=== PATIENT | male | born 1990 | race Caucasian/White ===

== ENCOUNTER 2023-03-03 17:29 | Emergency (ER) | payer SELFPAY ==
--- NOTE | ~2023-03-03 | CT_ITS ---
EXAMINATION: CT abdomen pelvis wo con DATE: 03/03/2023 19:20 INDICATION: Hematuria. TECHNIQUE: Computed tomography (CT) of the abdomen and pelvis was performed without intravenous contr ast. Automated exposure control and iterative reconstruction technique were employed. The dose-length product was 252.63 mGy-cm. COMPARISON: None. FINDINGS: The visualized portions of the lung bases are clear without pneumonia or pleural effusion. The heart size is normal. No pericardial effusion. The liver, gallbladder, spleen, pancreas, adrenal glands, and kidneys are normal. There is no urolithiasis. There is a left inguinal hernia containing fat. There are no dilated loops of bowel. The appendix is normal. There are no pathologically enlarge d lymph nodes. There is no free intraperitoneal fluid. There is mild lumbar spondylosis. IMPRESSION: 1. No urolithiasis. 2. Left inguinal hernia containing fat. Reviewed, dictated and finalized at location E. ER
[2023-03-03 17:30] VITALS: BP 127/76; PULSE 81; RESP 20; TEMP 36.8; O2SAT 100
--- NOTE | 2023-03-03 17:38 | ED.NAVMDI ---
HPI - Nausea/Vomiting/Diarrhea General Chief complaint: Nausea/Vomiting/Diarrhea Stated complaint: dehydration Time Seen by Provider: 03/03/23 17:32 Source: patient Mode of arrival: ambulatory Limitations: no limitations History of Present Illness HPI Narrative: 33-year-old male presents to the ER with -- watery diarrhea for the past 1 week which resolved yesterday. Yesterday he had bowel movements every half an hour. No vomiting. No abdominal pain. No hematemesis or melena. -- Decreased urine output since this morning. No fever or chills. No abdominal pain. No history of recent antibiotic use. MD elicited complaint: diarrhea Pertinent past history: anorexia Onset (ago): day(s) ( Started 7 days ago) Description of vomiting: watery Associated nausea: No Associated abdominal pain: No Severity: moderate Quality: aching Exacerbating factors: none Relieving factors: none Associated symptoms: denies other symptoms and decreased urine output Related Data Home Medications Medication Instructions Recorded Confirmed No Home Medications 03/03/23 03/03/23 Allergies Allergy/AdvReac Type Severity Reaction Status Date / Time No Known Allergies Allergy Verified 03/03/23 17:39 Review of Systems Review of Systems: All systems reviewed & are unremarkable except as noted in HPI and below Constitutional: Constitutional: Reports as per HPI and Reports no additional constitutional complaints Eyes: Eyes: Reports as per HPI and Reports no additional eye complaints ENT: Reports system reviewed and no additional complaints, except as documented and Reports as per HPI Cardiovascular: Cardiovascular: Reports as per HPI Respiratory: Respiratory: Reports as per HPI and Reports no additional respiratory complaints Gastrointestinal: Gastrointestinal: Reports as per HPI, Reports no additional gastrointestinal complaints and Reports diarrhea Musculoskeletal: Musculoskeletal: Reports no additional musculoskeletal complaints and Reports as per HPI Integumentary/Breasts: Skin/Breast: Reports system reviewed and no additional complaints, except as docu and Reports as per HPI Neurologic: Reports system reviewed and no additional complaints, except as documented and Reports as per HPI Psychiatric: Psychiatric: Reports no additional psychiatric complaints and Reports as per HPI Endocrine: Endocrine: Reports no additional endocrine complaints and Reports as per HPI Hematologic/Lymphatic: Hematologic/Lymphatic: Reports no additional hematologic/lymphatic complaints and Reports as per HPI Allergic/Immunologic: Allergic/Immunologic: Reports no additional allergic/immunologic complaints and Reports as per HPI [facility] Surgical History Surgical History (Updated 03/03/23 @ 17:43 by Chivo Simons MD) H/O hernia repair Exam Narrative: hemodynamically stable. Afebrile. Const: General: no acute distress Orientation/consciousness: patient oriented x3 Limitations: no limitations HENMT: Head: normal to inspection Ears: external ears normal Face/Nose/Sinus: Normal external nose present Face and sinus: normal facial exam Mouth: Yes Normal oral and palatal mucosa present Throat: posterior oropharynx normal Eyes: Conjunctivae: conjunctivae normal Cornea: corneas normal Pupils: Equal, round and reactive pupils present EOM: EOMs intact bilaterally Direct Ophthalmoscopy: no photophobia Neck: Neck: normal visual inspection, no lymphadenopathy and no meningeal signs Chest: Chest palpation & inspection: normal inspection of the chest Resp: Effort & Inspection: normal respiratory effort Auscultation: clear to auscultation bilaterally Cardio: Rate: regular rate Rhythm: regular rhythm GI: GI Palp: Yes Soft to palpation Auscultation: normal bowel sounds : General: Yes no CVA tenderness Back/Spine/Pelvis: Back: no CVA tenderness Skin: General skin exam: normal color Rashes: no rashes Wounds: no wounds Neuro:
[2023-03-03 17:59] LABS: Hematocrit 49.1 % (40.0-54.0); Mean Corpuscular HGB Conc 34.6 g/dL (32.0-36.0); Mean Corpuscular Hemoglobin 30.1 pg (27.0-31.0); Mean Corpuscular Volume 86.9 fL (78.0-102.0); Mean Platelet Volume 9.9 fl (8.7-11.0); Platelet Count Result 275 K/mm3 (150-420); Red Blood Count 5.65 M/mm3 (4.70-6.10); Red Cell Distribution Width 12.4 % (11.6-14.4); White Blood Count 5.7 K/mm3 (4.8-10.8)
[2023-03-03] MEDS: LACTATED RINGERS 1,000 ML 999 ML IV CONT ×2 (17:59→19:03)
[2023-03-03 18:13] LABS: Appearance Urine Slightly Cloudy (Clear); Bilirubin Urine 1+ (Negative); Blood Urine 3+ (Negative); Glucose Urine UA Negative (Negative); Ketones Urine Negative (Negative); Leukocyte Esterase Ur Negative LEU/UL (Negative); Nitrate Urine Negative (Negative); Protein Urine 3+ (Negative); Specific Grav Ur >= 1.030 (1.010-1.020); pH Urine 6.5 (5.0-8.0)
[2023-03-03 18:16] LABS: INR 1.1; Prothrombin Time 11.9 Seconds (9.50-12.10)
[2023-03-03 18:20] LABS: Add Urine Microscopic? YES; Amorphous Sediment Urine Moderate; Bacteria Urine 1+ /hpf; Color Urine Brown (Yellow); Squamous Epithelial Cell Urine Few /hpf (Few)
[2023-03-03 18:20] LABS: Alanine Aminotransferase 166 U/L (16-63); Albumin Level 3.6 g/dL (3.4-5.0); Alkaline Phosphatase 108 U/L (46-116); Anion Gap 12 mmol/L (8-16); Aspartate Amino Transferase 73 U/L (15-37); Bilirubin,Total 0.6 mg/dL (0.00-1.00); Blood Urea Nitrogen 19 mg/dL (7-18); Calcium 8.1 mg/dL (8.5-10.1); Carbon Dioxide 28 mmol/L (21-32); Chloride 99 mmol/L (98-108); Estimated CRCL calculation 67 ml/min; Estimated Glomerular Filt Rate > 60; Glucose 89 mg/dL (70-99); Osmolality Calculated 289 mOsm/kg (285-295); Potassium 3.6 mmol/L (3.5-5.1); Sodium 139 mmol/L (136-145); Total Protein 7.6 g/dL (6.4-8.2)
[2023-03-03 18:28] LABS: Band Neutrophils Percent 1 % (0-6); Basophils Percent Manual 0 % (0-1); Eosinophils Absolute Manual 0.05 K/mm3 (0.02-0.5); Eosinophils Percent Manual 1 % (1-6); Lymphocytes Absolute Manual 1.36 K/mm3 (1.1-4.5); Lymphocytes Percent Manual 24 % (18-44); Monocytes Absolute Manual 0.96 K/mm3 (0.1-0.90); Monocytes Percent Manual 17 % (3-9); Neutrophils Percent Manual 57 % (46-73); Total Cells Counted 100
[2023-03-03 18:29] LABS: Platelet Estimate Adequate (Adequate)
[2023-03-03 18:38] LABS: Lipase 45 U/L (16-77); Troponin I 6.9 ng/L (0.00-60.4)
[2023-03-03 18:44] LABS: Creatine Kinase 64 U/L (39-308)
--- NOTE | 2023-03-03 19:03 | PC.NURSE ---
DR. Simons at bedside for patient update.
--- NOTE | 2023-03-03 19:09 | PC.NURSE ---
Patient report received from MARYSOL Mariano. Patient awaiting CT scan.
--- NOTE | 2023-03-03 19:15 | PC.NURSE ---
patient in imaging.
--- NOTE | 2023-03-03 19:25 | PC.NURSE ---
patient returned from CT scan, ivf infusing and VSS. given warm blanket. visitor at bedside. call light within reach.
[2023-03-03 19:26] VITALS: BP 125/85; PULSE 66; RESP 18; TEMP 36.7; O2SAT 100
--- NOTE | 2023-03-03 20:33 | PC.NURSE ---
dr. joel at bedside for update regarding CT results.
== END 2023-03-03 20:38 | disposition home or self-care (01) ==
PROVIDERS: Emergency Provider Internal Medicine Critical Care Medicine
DX: E86.0 Dehydration (principal); R74.01 Elevation of levels of liver transaminase levels; R19.7 Diarrhea, unspecified
CPT/HCPCS: 36415; 74176; 80053; 81001; 82550; 83605; 83690; 84484; 85025; 85610; 96360; 96361; 99284; J7120

== ENCOUNTER 2023-11-24 18:44 | Emergency (ER) | payer SELFPAY ==
--- NOTE | 2023-11-24 18:47 | ED.DENTAL ---
HPI - Dental/Oral General Chief complaint: Dental/Oral Stated complaint: dental pain Time Seen by Provider: 11/24/23 18:47 Source: patient Mode of arrival: ambulatory Limitations: no limitations History of Present Illness HPI Narrative: 33-year-old male with extensive dental caries presents to the ED with a 4 day history of -- left lower toothache /jaw pain. No fever or chills. MD Complaint: tooth pain Location: Tooth # (18) Onset (ago): day(s) ( Four days) Duration: constant Severity: severe Relieving factors: nothing Exacerbating factors: cold and heat Context: history of dental caries Treatment prior to arrival: none Related Data Allergies Allergy/AdvReac Type Severity Reaction Status Date / Time No Known Allergies Allergy Verified 03/03/23 17:39 Review of Systems Review of Systems: All systems reviewed & are unremarkable except as noted in HPI and below PMFSH Past Medical History Medical History (Updated 11/24/23 @ 19:01 by Chivo Simons MD) Dental caries Surgical History Surgical History (Updated 03/03/23 @ 17:43 by Chivo Simons MD) H/O hernia repair Exam Const: General: no acute distress Nutritional Appearance: well nourished Orientation/consciousness: patient oriented x3 Limitations: no limitations HENMT: Head: normal to inspection Ears: external ears normal Face/Nose/Sinus: Normal external nose present Face and sinus: normal facial exam Mouth: Yes Normal oral and palatal mucosa present Teeth and gingiva: dentition normal ( extensive dental caries with multiple fractured tooth) and abnormal tooth and associated gingiva ( 18- Wren is missing. extensive swelling around the tooth) Throat: posterior oropharynx normal Eyes: Conjunctivae: conjunctivae normal Pupils: Equal, round and reactive pupils present EOM: EOMs intact bilaterally Direct Ophthalmoscopy: no photophobia Neck: Neck: normal visual inspection, no lymphadenopathy and no meningeal signs Chest: Chest palpation & inspection: normal inspection of the chest Resp: Effort & Inspection: normal respiratory effort Auscultation: clear to auscultation bilaterally Cardio: Rate: regular rate Rhythm: regular rhythm GI: Auscultation: normal bowel sounds Other: no tenderness/rigidity / rebound. : General: Yes no CVA tenderness Skin: General skin exam: normal color Rashes: no rashes Wounds: no wounds Neuro: General: patient oriented x3, moves all extremities, no meningeal signs, no focal motor deficits and CN's II-XI intact bilaterally Cranial nerves: Yes Nystagmus not present Speech: normal speech Gait exam (Neuro): Normal gait present Extrem: General: normal to inspection and no clubbing, cyanosis or edema Psych: Mental Status: mental status grossly normal Affect: normal affect Attitude: cooperative Course Course Emergency Course: Dental caries dental pain Vital Signs Vital signs: Vital Signs Temperature 37.0 C 11/24/23 18:48 Pulse Rate 77 11/24/23 18:48 Respiratory Rate 16 11/24/23 18:48 Blood Pressure 143/103 H 11/24/23 18:48 Pulse Oximetry 100 11/24/23 18:48 Oxygen Delivery Room Air 11/24/23 18:48 Temperature 37.0 C 11/24/23 18:48 Pulse Rate 77 11/24/23 18:48 Respiratory Rate 16 11/24/23 18:48 Blood Pressure 143/103 H 11/24/23 18:48 Pulse Oximetry 100 11/24/23 18:48 Oxygen Delivery Room Air 11/24/23 18:48 MDM - Dental/Oral MDM Narrative Medical decision making narrative: dental caries dental pain Differential Diagnosis Differential diagnosis: Likely gingival abscess and dental abscess Medical Records Attestation: I reviewed the patient's medical records. Discharge Plan Discharge Clinical Impression: Dental caries, Toothache Patient Disposition: Home, Self-Care Condition: Stable Instructions: Antibiotic Form, Dental Abscess (ED), Toothache (ED) Patient Language: Estonian Prescriptions: New clindamycin HCl 3
[2023-11-24 18:48] VITALS: BP 143/103; PULSE 77; RESP 16; TEMP 37; O2SAT 100
[2023-11-24] MEDS: HYDROcodone/acetaminophen (*CRX) 10-325 MG TABLET 1 TAB PO (18:59)
[2023-11-24] MEDS: CLINDAMYCIN HCL 150 MG CAP 300 MG PO (19:10)
== END 2023-11-24 19:12 | disposition home or self-care (01) ==
LOC: CHSED 19:07
PROVIDERS: Emergency Provider Internal Medicine Critical Care Medicine
DX: K02.9 Dental caries, unspecified (principal)
CPT/HCPCS: 99283; A9270

== ENCOUNTER 2024-02-09 20:15 | Emergency (ER) | payer BC, SELFPAY ==
--- NOTE | ~2024-02-09 | CT_ITS ---
Non-contrast CT scan of the Abdomen and Pelvis Clinical indication: Abdominal pain Technique: 2.5 mm axial scans were obtained through the abdomen and pelvis without intravenous or or al contrast. Dose reduction technique was used on this scan by utilizing automated exposure control a nd iterative reconstruction technique. The dose-length product (DLP) was 237.27 mGy-cm. COMPARISON: 03/03/2023 Findings: Images through the lung bases reveal focal areas of airspace opacity in the right middle l obe. There is no evidence of renal or ureteral calculi. The kidneys and the ureters are nondilated. The liver, spleen, pancreas, gallbladder, and adrenals appear normal. There is no aortic aneurysm. There is no evidence of bowel obstruction. Images through the pelvis were performed. There is no evidence of ascites or lymphadenopathy. Urinary bladder unremarkable. No pelvic mass seen. Impression: Possible focal right middle lobe pneumonia versus postinflammatory change. No other significant findings. Reviewed, dictated and finalized at [facility]. ASSIGNMENT EDITOR Impression: Possible focal right middle lobe pneumonia versus postinflammatory change. No other significant findings.
--- NOTE | ~2024-02-09 | CT_ITS ---
Clinical Indication: Right middle lobe airspace disease, right upper quadrant pain CT Scan of the Chest, Abdomen, and Pelvis with Contrast: Technique: Contiguous sections were acquired throughout the chest, abdomen, and pelvis after intraven ous administration of 100 cc of Omnipaque 350. Dose reduction technique was used on this scan by uti madelineing automated exposure control and iterative reconstruction technique. The dose-length product (DL P) was 380.14 mGy-cm. Comparison: 02/09/2024 Findings: There is no evidence of any significant mediastinal, hilar or axillary lymphadenopathy. The mediastin al soft tissues appear normal. No central pulmonary embolus seen. No aortic aneurysm or dissection. There is no evidence of pleural or pericardial effusion. Stable focal airspace opacity/nodularity in the inferior right middle lobe. No other pulmonary abnorm ality seen. The liver, spleen, pancreas, gallbladder, adrenals and kidneys are within normal limits. No evidence of aortic aneurysm. No lymphadenopathy. No bowel obstruction or bowel wall thickening. There is no evidence to suggest acute appendicitis. Urinary bladder is unremarkable. Urinary bladder unremarkable. No pelvic mass seen. No ascites. Impression: Stable focal right middle lobe pneumonia versus postinflammatory change. No significant abnormality in the abdomen or pelvis. Reviewed, dictated and finalized at location . 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 No significant abnormality in the abdomen or pelvis.
--- NOTE | 2024-02-09 20:34 | ED.NAVMDI ---
HPI - Nausea/Vomiting/Diarrhea General Chief complaint: Nausea/Vomiting/Diarrhea Stated complaint: vomiting Time Seen by Provider: 02/09/24 20:34 Source: patient Mode of arrival: ambulatory Limitations: no limitations History of Present Illness HPI Narrative: patient is a 34-year-old male with right upper quadrant pain this evening and this started out as diffuse lower abdominal pain. Significantly was out drinking for the holiday in more than normal amounts. He has associated nausea and vomiting. patient also fell and landed on his back any as musculoskeletal back pain since the fall. Also pain with nausea and vomiting. MD elicited complaint: nausea, vomiting and abdominal pain Pertinent past history: other ( none) Onset (ago): day(s) (1) Description of vomiting: watery Description of diarrhea: other ( none) Associated nausea: Yes Associated abdominal pain: Yes Location of pain: diffuse and RUQ Radiation: diffuse and RUQ Pain consistency: constant Severity: moderate Pain scale (0-10): 6 Quality: sharp Exacerbating factors: eating, vomiting, movement and other ( palpation) Relieving factors: medication ( pain medicine in the ER) Context: other ( patient was drinking alcohol yesterday for the holiday and started to have abdominal pain today with nausea vomiting) Associated symptoms: nausea/vomiting Treatment prior to arrival: none Related Data Allergies Allergy/AdvReac Type Severity Reaction Status Date / Time No Known Allergies Allergy Verified 03/03/23 17:39 Review of Systems Review of Systems: All systems reviewed & are unremarkable except as noted in HPI and below Constitutional: Constitutional: Reports no additional constitutional complaints Eyes: Eyes: Reports no additional eye complaints ENT: Reports system reviewed and no additional complaints, except as documented Cardiovascular: Cardiovascular: Reports no additional cardiovascular complaints Respiratory: Respiratory: Reports no additional respiratory complaints Gastrointestinal: Gastrointestinal: Reports no additional gastrointestinal complaints Genitourinary: Genitourinary: Reports no additional male genitourinary complaints Musculoskeletal: Musculoskeletal: Reports no additional musculoskeletal complaints Integumentary/Breasts: Skin/Breast: Reports system reviewed and no additional complaints, except as docu Neurologic: Reports system reviewed and no additional complaints, except as documented Psychiatric: Psychiatric: Reports no additional psychiatric complaints Endocrine: Endocrine: Reports no additional endocrine complaints Hematologic/Lymphatic: Hematologic/Lymphatic: Reports no additional hematologic/lymphatic complaints Allergic/Immunologic: Allergic/Immunologic: Reports no additional allergic/immunologic complaints [facility] Past Medical History Medical History Dental caries Surgical History Surgical History H/O hernia repair Exam Const: General: healthy appearing Nutritional Appearance: well nourished Orientation/consciousness: patient oriented x3 Limitations: no limitations HENMT: Head: normal to inspection Ears: external ears normal Face/Nose/Sinus: Normal external nose present Eyes: Conjunctivae: conjunctivae normal Cornea: corneas normal Pupils: Equal, round and reactive pupils present Neck: Neck: normal visual inspection Chest: Chest palpation & inspection: normal inspection of the chest Resp: Effort & Inspection: normal respiratory effort and not labored Auscultation: clear to auscultation bilaterally and no crackles Cardio: Rate: regular rate Rhythm: regular rhythm Heart sounds: no murmurs GI: Inspection: non-distended GI Palp: Yes Soft to palpation, Yes Tenderness to palpation present (GI) ( right upper quadrant after initial diffuse lower abdomen), Yes Guarding due to palpation present (GI), Yes Rigid due to palpation ( equivocal), No Hernia present, No Palpable mass present and No Rebound tenderness present Auscultation: normal bowel sounds : General: Yes bladder normal to palpation Back/Spine/Pelvis: Back: no CVA tenderness Skin: General skin exam: normal color Rashes: no rashes Wounds: no wounds Neuro: General: patient oriented x3 Cranial nerves: Yes Nystagmus not present Speech: normal speech Gait exam (Neuro): Normal gait present Extrem: General: normal to inspection Psych: Mental Status: mental status grossly normal Affect: normal affect Attitude: cooperative MDM - Nausea/Vomiting/Diarrhea MDM Narrative Medical decision making narrative: patient is a 34-year-old male with abdominal pain and associated nausea and vomiting. We will do a GI workup at this time. patient had variable abdominal pain throughout his stay and we did a CT plain and a CT with contrast. CT with contrast reassured that there is no acute findings except a possible right middle lobe pneumonia. He is basically asymptomatic for this pneumonia. Lab Data Attestation: I reviewed the patient's lab results. 02/09/24 22:42 02/09/24 22:42 Labs: Lab Results 02/09/24 Range/Units 22:42 WBC 9.7 (4.8-10.8) K/mm3 RBC 5.01 (4.70-6.10) M/mm3 Hgb 15.3 (14.0-18.0) g/dL Hct 44.8 (40.0-54.0) % MCV 89.4 (78.0-102.0) fL MCH 30.5 (27.0-31.0) pg MCHC 34.2 (32-36) g/dL RDW 12.1 (11.6-14.4) % Plt Count 316 (150-420) K/mm3 MPV 9.1 (8.7-11.0) fl Immature Gran % (Auto) 0.3 H (0.0-0.0) % Neut % (Auto) 73.8 H (50.0-70.0) % Lymph % (Auto) 17.5 L (18.0-42.0) % Pender % (Auto) 7.8 (2.0-11.0) % Eos % (Auto) 0.3 L (1.0-6.0) % Baso % (Auto) 0.3 (0.0-1.0) % Lymph # (Auto) 1.70 (1.10-4.50) K/mm3 Pender # (Auto) 0.76 (0.10-0.90) K/mm3 Eos # (Auto) 0.03 (0.02-0.50) K/mm3 Baso # (Auto) 0.03 (0.00-0.10) K/mm3 Abs Immat Gran (auto) 0.03 H (0.00-0.00) K/mm3 Absolute Neuts (auto) 7.17 (1.70-7.20) K/mm3 Absolute Nucleated RBC 0.00 (0.00-0.00) K/mm3 Nucleated RBC % 0.0 (0-0.0) % Sodium 141 (136-145) mmol/L Potassium 3.7 (3.5-5.1) mmol/L Chloride 102 (98-108) mmol/L Carbon Dioxide 34 H (21-32) mmol/L Anion Gap 5 (4-12) mmol/L BUN 10 (7-18) mg/dL Creatinine 1.11 (0.70-1.30) mg/dL Estim Creat Clear Calc Not Reportable Estimated GFR > 60 (59 - ) Glucose 115 H (70-99) mg/dL Calculated Osmolality 292 (285-295) mOsm/kg Lactic Acid 0.7 (0.4-2.0) mmol/L Calcium 9.2 (8.5-10.1) mg/dL Magnesium 2.1 (1.8-2.4) mg/dL Total Bilirubin 0.5 (0.00-1.00) mg/dL AST 22 (15-37) U/L ALT 39 (16-63) U/L Alkaline Phosphatase 119 H (46-116) U/L Total Protein 7.3 (6.4-8.2) g/dL Albumin 3.9 (3.4-5.0) g/dL Lipase 29 (16-77) U/L Imaging Data Attestation: I personally reviewed and interpreted this imaging study as follows: Radiologist's impression: CT scan of the abdomen and pelvis without contrast showed a questionable right middle lobe airspace disease and patient does not have any respiratory complaints and a contracted gallbladder; we will proceed with doing a CT scan of the abdomen and pelvis with contrast now to get a better picture of the gallbladder area and then ultrasound in the morning if needed CT scan of the chest abdomen and pelvis with contrast showed Impression: Stable focal right middle lobe pneumonia versus postinflammatory change. No significant abnormality in the abdomen or pelvis. Discharge Plan Discharge Clinical Impression: Musculoskeletal pain Nausea & vomiting Qualifiers: Vomiting type: unspecified Qualified Code(s): R11.2 - Nausea with vomiting, unspecified Gastritis Qualifiers: Gastritis type: unspecified gastritis Chronicity: acute Gastritis bleeding: without bleeding Qualified Code(s): K29.00 - Acute gastritis without bleeding Pneumonia Qualifiers: Pneumonia type: due to unspecified organism Laterality: right Lung location: unspecified part of lung Qualified Code(s): J18.9 - Pneumonia, unspecified organism Patient Disposition: Home, Self-Care Condition: Stable Instructions: Antibiotic Form, Acute Nausea and Vomiting (ED), Abdominal Pain (ED) Patient Language: Turkmen Prescriptions: New azithromycin 250 mg tablet See Rx Instructions .ROUTE .COMPLEX Qty: 6 0RF Rx Instructions: For 250 mg dose pack: take 500 mg today (day 1), then 250 mg for 4 days (days 2-5) orphenadrine citrate 100 mg tablet extended release 100 mg PO BID PRN (Reason: pain) Qty: 20 0RF No Action clindamycin HCl 300 mg capsule 300 mg PO Q8H Qty: 20 0RF Follow-up/Referrals: UNKNOWN,DOCTOR [Primary Care Provider] - Time of Disposition: 06:43
[2024-02-09 22:48] LABS: Basophils Absolute Auto 0.03 K/mm3 (0.00-0.10); Basophils Percent Auto 0.3 % (0.0-1.0); Eosinophils Absolute Auto 0.03 K/mm3 (0.02-0.50); Eosinophils Percent Auto 0.3 % (1.0-6.0); Hematocrit 44.8 % (40.0-54.0); Hemoglobin 15.3 g/dL (14.0-18.0); Immature Granulocyte Absolute 0.03 K/mm3 (0.00-0.00); Immature Granulocyte Percent A 0.3 % (0.0-0.0); Lymphocytes Percent Auto 17.5 % (18.0-42.0); Mean Corpuscular HGB Conc 34.2 g/dL (32-36); Mean Corpuscular Hemoglobin 30.5 pg (27.0-31.0); Mean Corpuscular Volume 89.4 fL (78.0-102.0); Mean Platelet Volume 9.1 fl (8.7-11.0); Monocytes Absolute Auto 0.76 K/mm3 (0.10-0.90); Monocytes Percent Auto 7.8 % (2.0-11.0); Neutrophils Absolute Auto 7.17 K/mm3 (1.70-7.20); Neutrophils Percent Auto 73.8 % (50.0-70.0); Platelet Count Result 316 K/mm3 (150-420); Red Blood Count 5.01 M/mm3 (4.70-6.10); Red Cell Distribution Width 12.1 % (11.6-14.4); White Blood Count 9.7 K/mm3 (4.8-10.8)
[2024-02-09 23:09] LABS: Alanine Aminotransferase 39 U/L (16-63); Albumin Level 3.9 g/dL (3.4-5.0); Alkaline Phosphatase 119 U/L (46-116); Anion Gap 5 mmol/L (4-12); Aspartate Amino Transferase 22 U/L (15-37); Bilirubin,Total 0.5 mg/dL (0.00-1.00); Blood Urea Nitrogen 10 mg/dL (7-18); Calcium 9.2 mg/dL (8.5-10.1); Carbon Dioxide 34 mmol/L (21-32); Chloride 102 mmol/L (98-108); Estimated Glomerular Filt Rate > 60; Glucose 115 mg/dL (70-99); Osmolality Calculated 292 mOsm/kg (285-295); Potassium 3.7 mmol/L (3.5-5.1); Sodium 141 mmol/L (136-145); Total Protein 7.3 g/dL (6.4-8.2)
[2024-02-09 23:14] LABS: Lipase 29 U/L (16-77); Magnesium 2.1 mg/dL (1.8-2.4)
[2024-02-09 23:15] LABS: Lactic Acid Reflex 0.7 mmol/L (0.4-2.0)
[2024-02-09] MEDS: SODIUM CHLORIDE 0.9% IV 1,000 ML 999 ML IV CONT (23:20)
[2024-02-10] MEDS: KETOROLAC 30 MG/ML VIAL (*BKC) IV PUSH (01:10)
[2024-02-10] MEDS: MORPHINE SULFATE (*CRX) 2 MG/ML INJ IV PUSH (02:11)
[2024-02-10] MEDS: HYDROmorphone HCL INJ (*CRX) 2 MG/ML VIAL 0.5 MG IV PUSH (04:15)
[2024-02-10 07:11] VITALS: BP 104/77; PULSE 67; RESP 18; TEMP 36.7; O2SAT 98
== END 2024-02-10 07:11 | disposition home or self-care (01) ==
PROVIDERS: Emergency Provider Emergency Medicine
DX: K29.00 Acute gastritis without bleeding (principal); J18.9 Pneumonia, unspecified organism; R11.2 Nausea with vomiting, unspecified
CPT/HCPCS: 36415; 71260; 74176; 74177; 80053; 83605; 83690; 83735; 85025; 96361; 96374; 96375; 99284; J1171; J1885; J2270; J7030; Q9967

== ENCOUNTER 2024-08-14 13:12 | Emergency (ER) | payer OTHER, SELFPAY ==
[2024-08-14 13:19] VITALS: BP 120/80; PULSE 63; RESP 16; TEMP 36.5; O2SAT 100
--- NOTE | 2024-08-14 13:52 | ED_ITS ---
HPI - General Adult General Chief complaint: Headache Stated complaint: Headache/Nausea/Low Blood Pressure Time Seen by Provider: 08/14/24 13:30 Source: patient and RN notes reviewed Mode of arrival: ambulatory Limitations: no limitations History of Present Illness HPI narrative: Patient presents today complaining of frontal headache that was present upon waking this morning, significant fatigue, nausea, photophobia, bilateral lower leg tingling(right greater than left), and low blood pressure. checked his blood pressure at home this morning and it was 95 systolic, then 101/60. His blood sugar at that time was 100. He took Tylenol around 11 without improvement in headache symptoms. States headache waxes and wanes and currently rates his pain 2/10. He denies dizziness or lightheadedness, vision changes, numbness or tingling in the genitalia, loss of bowel or bladder control, chest pain, shortness of breath, abdominal pain. 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 Related Data Home Medications ?Medication ?Instructions ?Recorded ?Confirmed ?Last Taken ?Type No Home Medications 08/14/24 08/14/24 Unknown History Allergies Allergy/AdvReac Type Severity Reaction Status Date / Time No Known Allergies Allergy Verified 08/14/24 13:42 [facility] Past Medical History Medical History Dental caries Surgical History Surgical History H/O hernia repair Comments At time of signature, I have reviewed and agree with nursing past medical, surgical, social and family history unless otherwise noted. Please see nursing chart for further information. There is no relevant family history pertinent to the presenting complaint Exam Narrative: GENERAL: Well-appearing, well-nourished, and in no acute distress. HEAD: Normocephalic, atraumatic. EYES: EOMI. PERRL. No redness or drainage. Conjunctivae normal. ENT: Mucous membranes pink and moist. Nares clear. No rhinorrhea. TMs normal bilaterally. Throat normal. Uvula midline. NECK: Normal AROM. Supple. No lymphadenopathy. CHEST: No respiratory distress. Clear to auscultation. HEART: Regular rate and rhythm. No murmur appreciated. Normal peripheral pulses. ABDOMEN: Soft, nontender, nondistended, normal active bowel sounds. MUSCULOSKELETAL: No bony tenderness. EXTREMITIES: Normal range of motion. No edema. Hand dispatcher electric power equal and strong. Dorsiflexion and plantarflexion equal and strong against resistance. SKIN: Warm, dry, no rash. Capillary refill normal. Normal skin turgor. NEURO: No focal deficits. Alert and oriented x3. Gait steady. PSYCH: Normal affect. No signs of depression or anxiety. Course Course Level of Care: Express Care Visit Vital Signs Vital signs: Vital Signs Temperature 97.7 F 08/14/24 13:19 Pulse Rate 63 08/14/24 13:19 Respiratory Rate 16 08/14/24 13:19 Blood Pressure 120/80 08/14/24 13:19 Pulse Oximetry 100 08/14/24 13:19 Oxygen Delivery Room Air 08/14/24 13:19 Temperature 97.7 F 08/14/24 13:19 Pulse Rate 63 08/14/24 13:19 Respiratory Rate 16 08/14/24 13:19 Blood Pressure 120/80 08/14/24 13:19 Pulse Oximetry 100 08/14/24 13:19 Oxygen Delivery Room Air 08/14/24 13:19 Reviewed Transfer Transfered to: [facility] Transportation: Other (Private vehicle) Transfer rationale: Headache, fatigue, nausea Accepting physician: Sandra Medical Decision Making [facility] Narrative Medical decision making narrative: Patient is 34-year-old male primarily complaining of extreme fatigue, frontal headache, nausea, bilateral lower leg tingling that was not improved with Tylenol this morning. Patient works out in the heat and did go to work this morning. He had some low blood pressure readings at home this morning but blood pressure upon arrival was 120/80. Blood sugar at home was 100. Bedside glucose at [facility] is 112. Due to patient's symptoms and [facility] limitations regarding diagnostics, recommend ER transfer for further evaluation of his symptoms today. Patient agrees with plan. Vital signs stable. Report given to emergency room provider at [facility]. Report provided to ED physician. VSS. Differential Diagnosis Differential Diagnosis: Dehydration, hypoglycemia, electrolyte imbalance, migraine, cluster headache, viral syndrome Vital Signs Vital Signs: Vital Signs Temperature 97.7 F 08/14/24 13:19 Pulse Rate 63 08/14/24 13:19 Respiratory Rate 16 08/14/24 13:19 Blood Pressure 120/80 08/14/24 13:19 Pulse Oximetry 100 08/14/24 13:19 Oxygen Delivery Room Air 08/14/24 13:19 Temperature 97.7 F 08/14/24 13:19 Pulse Rate 63 08/14/24 13:19 Respiratory Rate 16 08/14/24 13:19 Blood Pressure 120/80 08/14/24 13:19 Pulse Oximetry 100 08/14/24 13:19 Oxygen Delivery Room Air 08/14/24 13:19 Critical Care Time Critical Care Time Critical Care Time: No Discharge Plan Discharge Clinical Impression: Headache, Nausea, Fatigue Patient Disposition: Acute Care Hospital Condition: Stable Patient Language: Taiwanese Prescriptions: No Action No Home Medications Follow-up/Referrals: PHYSICIAN,LABORATORY TECHNICAL SPECIALIST [Primary Care Provider] - Time of Disposition: 14:06
== END 2024-08-14 14:06 | disposition short-term general hospital (02) ==
PROVIDERS: Emergency Provider Nurse Practitioner
DX: R51.9 Headache, unspecified (principal); R11.0 Nausea; R53.83 Other fatigue
CPT/HCPCS: 82948; 99203; G0463

== ENCOUNTER 2024-08-14 14:32 | Emergency (ER) | payer OTHER, SELFPAY ==
--- NOTE | ~2024-08-14 | CT_ITS ---
EXAMINATION: CT brain wo con DATE: 08/14/2024 15:47 INDICATION: headache, nausea, weakness . TECHNIQUE: Computed tomography (CT) of the head was performed without intravenous contrast. The mA wa s adjusted according to patient size. Iterative reconstruction technique was employed. The dose-lengt h product was 529.67 mGy-cm. COMPARISON: None. FINDINGS: No acute intracranial hemorrhage or extra-axial fluid collection. No hydrocephalus, mass, or herniation. No acute ischemic infarct. Unremarkable dural venous sinus attenuation. No acute osseous abnormality. Aerated secretions in the right posterior ethmoid sinus, the remaining aerated spaces are clear. Basal ganglia calcifications. IMPRESSION: No acute intracranial process. Reviewed, dictated and finalized at location K.
[2024-08-14 15:09] VITALS: BP 122/76; PULSE 71; RESP 16; TEMP 36.4; O2SAT 100
--- NOTE | 2024-08-14 15:37 | ED_ITS ---
HPI - Weakness General Chief complaint: Weakness <Aura Arroyo PA-C - Last Filed: 08/15/24 11:08> Stated complaint: headache, nausea, fatigue <SABRINA Hernandez Last Filed: 08/15/24 11:08> Time Seen by Provider: 08/14/24 15:37 <Aura Arroyo PA-C - Last Filed: 08/15/24 11:08> Focused HPI: This is a 34 year old male that presents to the ER for a headache. Reports associated nausea. Ongoing since this morning. Reports diffuse weakness. Reports numbness in the right leg. Reports he feels really tired. GENERAL: Well-appearing, well-nourished, and in no acute distress. HEAD: Normocephalic, atraumatic. CHEST: Clear to auscultation. ?No respiratory distress. HEART: Regular rate and rhythm.? NEURO: ?Alert and oriented x3. Patient screened in triage and initial orders placed.? ?Additional care and disposition to be based upon?diagnostic testing and treatment. <Aura Arroyo PA-C - Last Filed: 08/15/24 11:08> History of Present Illness HPI Narrative: as per mse <Joel Flores III, DO - Last Filed: 08/14/24 21:49> Related Data Home medications: Home Medications ?Medication ?Instructions ?Recorded ?Confirmed ?Last Taken ?Type No Home Medications 08/14/24 08/14/24 Unknown History <Aura Arroyo PA-C - Last Filed: 08/15/24 11:08> Allergies/Adverse reactions: Allergies Allergy/AdvReac Type Severity Reaction Status Date / Time No Known Allergies Allergy Verified 08/14/24 18:23 <SABRINA Hernandez Last Filed: 08/15/24 11:08> Review of Systems 2 Review of Systems: All systems reviewed & are unremarkable except as noted in HPI and below <Joel Folres III, DO - Last Filed: 08/14/24 21:49> PMFSH Past Medical History Medical History: Medical History Dental caries <Aura Arroyo PA-C - Last Filed: 08/15/24 11:08> Surgical History Surgical History: Surgical History H/O hernia repair <Aura Arroyo PA-C - Last Filed: 08/15/24 11:08> Social History Social History: Social History (Updated 08/14/24 @ 15:38 by Aura Arroyo PA-C) Smoking status: Current every day smoker Smokeless tobacco user: chewing tobacco Alcohol intake: current Substance use: never <Aura Arroyo PA-C - Last Filed: 08/15/24 11:08> Exam 2 Const: General: healthy appearing and no acute distress <Joel Horace Flores III, DO - Last Filed: 08/14/24 21:49> Nutritional Appearance: well nourished <Joel Horace Flores III, DO - Last Filed: 08/14/24 21:49> Orientation/consciousness: patient oriented x3 <Joel Horace Flores III, DO - Last Filed: 08/14/24 21:49> Limitations: no limitations <Joel Horace Flores III, DO - Last Filed: 08/14/24 21:49> HENMT: Head: normal to inspection <Joel Horace Flores III, DO - Last Filed: 08/14/24 21:49> Mouth: Yes Normal oral and palatal mucosa present <Joel Horace Flores III, DO - Last Filed: 08/14/24 21:49> Eyes: Conjunctivae: conjunctivae normal <Joel Horace Flores III, DO - Last Filed: 08/14/24 21:49> Pupils: Equal, round and reactive pupils present <Joel Horace Flores III, DO - Last Filed: 08/14/24 21:49> EOM: EOMs intact bilaterally <Joel Horace Flores III, DO - Last Filed: 08/14/24 21:49> Neck: Neck: normal visual inspection <Joel Horace Flores III, DO - Last Filed: 08/14/24 21:49> Resp: Effort & Inspection: normal respiratory effort <Joel Horace Flores III, DO - Last Filed: 08/14/24 21:49> Auscultation: clear to auscultation bilaterally <Joel Horace Flores III, DO - Last Filed: 08/14/24 21:49> Cardio: Rate: regular rate <Joel Horace Flores III, DO - Last Filed: 08/14/24 21:49> Rhythm: regular rhythm <Joel Horace Flores III, DO - Last Filed: 08/14/24 21:49> GI: GI Palp: Yes Soft to palpation and No Tenderness to palpation present (GI) <Joel Horace Flores III, DO - Last Filed: 08/14/24 21:49> Auscultation: normal bowel sounds <Joel Horace Flores III, DO - Last Filed: 08/14/24 21:49> Back/Spine/Pelvis: Back: no CVA tenderness <Joel Horace Flores III, DO - Last Filed: 08/14/24 21:49> Skin: General skin exam: normal color <Ojel Horace Flores III, DO - Last Filed: 08/14/24 21:49> Rashes: no rashes <Joel Horace Flores III, DO - Last Filed: 08/14/24 21:49> Wounds: no wounds <Joel Horace Flores III, DO - Last Filed: 08/14/24 21:49> Neuro: General: patient oriented x3, moves all extremities, no meningeal signs, no focal motor deficits and CN's II-XI intact bilaterally <Joel Horace Flores III, DO - Last Filed: 08/14/24 21:49> Cranial nerves: Yes Nystagmus not present <Joel Horace Flores III, DO - Last Filed: 08/14/24 21:49> Speech: normal speech <Joel Horace Flores III, DO - Last Filed: 08/14/24 21:49> Extrem: General: normal to inspection and no clubbing, cyanosis or edema < Joel Horace Flores III, DO - Last Filed: 08/14/24 21:49> Psych: Mental Status: mental status grossly normal <Joel Horace Flores III, DO - Last Filed: 08/14/24 21:49> Affect: normal affect <Joel Horace Flores III, DO - Last Filed: 08/14/24 21:49> Attitude: cooperative <Joel Horace Flores III, DO - Last Filed: 08/14/24 21:49> Course Vital Signs Vital signs: Vital Signs Temperature 97.5 F L 08/14/24 15:09 Pulse Rate 71 08/14/24 15:09 Respiratory Rate 16 08/14/24 15:09 Blood Pressure 122/76 08/14/24 15:09 Pulse Oximetry 100 08/14/24 15:09 Oxygen Delivery Room Air 08/14/24 15:09 Temperature 98.4 F 08/14/24 18:22 Pulse Rate 61 08/14/24 19:38 Respiratory Rate 16 08/14/24 19:38 Blood Pressure 106/81 08/14/24 19:38 Pulse Oximetry 100 08/14/24 19:40 Oxygen Delivery Room Air 08/14/24 19:40 <Aura Arroyo PA-C - Last Filed: 08/15/24 11:08> Vital Signs Temperature 97.5 F L 08/14/24 15:09 Pulse Rate 71 08/14/24 15:09 Respiratory Rate 16 08/14/24 15:09 Blood Pressure 122/76 08/14/24 15:09 Pulse Oximetry 100 08/14/24 15:09 Oxygen Delivery Room Air 08/14/24 15:09 Temperature 98.4 F 08/14/24 18:22 Pulse Rate 61 08/14/24 19:38 Respiratory Rate 16 08/14/24 19:38 Blood Pressure 106/81 08/14/24 19:38 Pulse Oximetry 100 08/14/24 19:40 Oxygen Delivery Room Air 08/14/24 19:40 <Joel Flores III, DO - Last Filed: 08/14/24 21:49> MDM - Weakness MDM Narrative Medical decision making narrative: Pt sent from [facility] for RAMOS today which is intermittent in nature and for intermittent bilateral tingling to front of shins r more than left for days. Pt feels weak as well but generally not one sided. CT and labs ordered. CT and labs unremarkable. will give shot or toradol for RAMOS. Intermittent nature of symptoms and b/l leg numbness in a very small area of leg seem to make cxa or tia unlikely. Pt feel better after toradol, wants to go home <Joel Flores III, DO - Last Filed: 08/14/24 21:49> Lab Data Result diagrams: 08/14/24 16:17 08/14/24 16:17 <Aura Arroyo PA-C - Last Filed: 08/15/24 11:08> Labs: Lab Results 08/14/24 Range/Units 16:17 WBC 5.4 (4.5-10.0) K/mm3 RBC 5.03 (4.6-6.20) M/mm3 Hgb 15.4 (14.0-18.0) g/dL Hct 45.9 (42.0-52.0) % MCV 91.3 (80-100) fl MCH 30.6 (26-34) pg MCHC 33.6 (32-36) g/dl RDW 12.6 (11.5-14.5) % Plt Count 265 (150-375) k/mm3 MPV 10.1 (7.4-10.4) fl Immature Gran % (Auto) 0.2 (0-0.5) % Neut % (Auto) 51.7 (45.5-73.1) % Lymph % (Auto) 36.2 (18.3-44.2) % [place] % (Auto) 10.2 H (2.6-8.5) % Eos % (Auto) 1.1 (0-4.4) % Baso % (Auto) 0.6 (0.2-1.2) % Lymph # (Auto) 1.96 (0.9-3.2) K/mm3 [place] # (Auto) 0.6 (0.1-0.6) K/mm3 Eos # (Auto) 0.1 (0-0.3) K/mm3 Baso # (Auto) 0.0 (0.0-0.1) K/mm3 Abs Immat Gran (auto) 0.01 (0.00-0.031) K/mm3 Absolute Neuts (auto) 2.8 (1.3-6.7) K/mm3 Absolute Nucleated RBC 0.000 (0.0-0.012) K/mm3 Nucleated RBC % 0.0 (0.0-0.2) % Sodium 141 (137-145) mmol/L Potassium 4.7 (3.4-5.0) mmol/L Chloride 101 (98-107) mmol/L Carbon Dioxide 30 (22-30) mmol/L Anion Gap 10 (4-12) mmol/L BUN 11 (9-20) mg/dL Creatinine 1.04 (0.7-1.3) mg/dL Estim Creat Clear Calc 83 ml/min Estimated GFR > 60 (59 - ) Glucose 106 (65-110) mg/dL Calcium 9.8 (8.4-10.2) mg/dL Total Bilirubin 0.8 (0.2-1.3) mg/dL AST 33 (17-59) U/L ALT 27 (6-50) U/L Alkaline Phosphatase 74 (38-126) U/L Total Protein 8.5 H (6.3-8.2) g/dL Albumin 5.0 (3.5-5.1) g/dL Urine Color Yellow (Yellow) Urine Appearance Clear (Clear) Urine pH 6.5 (5.0-9.0) Ur Specific [place] 1.011 (1.001-1.035) Urine Protein Negative (Negative) mg/dL Urine Glucose (UA) Negative (Negative) mg/dL Urine Ketones Negative (Negative) mg/dL Ur Blood (Man) Trace (Negative) Urine Nitrate Negative (Negative) Urine Bilirubin Negative (Negative) Urine Urobilinogen 1.0 (<2.0) mg/dL Leukocyte Esterase Rfl Trace H (Negative) JORI/UL Urine RBC 3-5 H (0-2) /hpf Urine WBC 0-5 (0-3) /hpf Ur Squamous Epith Cells None seen (Few) /hpf Urine Bacteria None seen /hpf Urine Casts 0-2 Urine Opiates Screen Negative (Negative) Urine Methadone Screen Negative (Negative) Ur Barbiturates Screen Negative (Negative) Ur Phencyclidine Scrn Negative (Negative) Ur Amphetamine Screen Negative (Negative) U Benzodiazepines Scrn Negative (Negative) Urine Cocaine Screen Negative (Negative) U Cannabinoids Screen Negative (Negative) Ethyl Alcohol < 10 (<10) mg/dL <Aura Arroyo PA-C - Last Filed: 08/15/24 11:08> Lab Results 08/14/24 Range/Units 16:17 WBC 5.4 (4.5-10.0) K/mm3 RBC 5.03 (4.6-6.20) M/mm3 Hgb 15.4 (14.0-18.0) g/dL Hct 45.9 (42.0-52.0) % MCV 91.3 (80-100) fl MCH 30.6 (26-34) pg MCHC 33.6 (32-36) g/dl RDW 12.6 (11.5-14.5) % Plt Count 265 (150-375) k/mm3 MPV 10.1 (7.4-10.4) fl Immature Gran % (Auto) 0.2 (0-0.5) % Neut % (Auto) 51.7 (45.5-73.1) % Lymph % (Auto) 36.2 (18.3-44.2) % [place] % (Auto) 10.2 H (2.6-8.5) % Eos % (Auto) 1.1 (0-4.4) % Baso % (Auto) 0.6 (0.2-1.2) % Lymph # (Auto) 1.96 (0.9-3.2) K/mm3 [place] # (Auto) 0.6 (0.1-0.6) K/mm3 Eos # (Auto) 0.1 (0-0.3) K/mm3 Baso # (Auto) 0.0 (0.0-0.1) K/mm3 Abs Immat Gran (auto) 0.01 (0.00-0.031) K/mm3 Absolute Neuts (auto) 2.8 (1.3-6.7) K/mm3 Absolute Nucleated RBC 0.000 (0.0-0.012) K/mm3 Nucleated RBC % 0.0 (0.0-0.2) % Sodium 141 (137-145) mmol/L Potassium 4.7 (3.4-5.0) mmol/L Chloride 101 (98-107) mmol/L Carbon Dioxide 30 (22-30) mmol/L Anion Gap 10 (4-12) mmol/L BUN 11 (9-20) mg/dL Creatinine 1.04 (0.7-1.3) mg/dL Estim Creat Clear Calc 83 ml/min Estimated GFR > 60 (59 - ) Glucose 106 (65-110) mg/dL Calcium 9.8 (8.4-10.2) mg/dL Total Bilirubin 0.8 (0.2-1.3) mg/dL AST 33 (17-59) U/L ALT 27 (6-50) U/L Alkaline Phosphatase 74 (38-126) U/L Total Protein 8.5 H (6.3-8.2) g/dL Albumin 5.0 (3.5-5.1) g/dL Urine Color Yellow (Yellow) Urine Appearance Clear (Clear) Urine pH 6.5 (5.0-9.0) Ur Specific [place] 1.011 (1.001-1.035) Urine Protein Negative (Negative) mg/dL Urine Glucose (UA) Negative (Negative) mg/dL Urine Ketones Negative (Negative) mg/dL Ur Blood (Man) Trace (Negative) Urine Nitrate Negative (Negative) Urine Bilirubin Negative (Negative) Urine Urobilinogen 1.0 (<2.0) mg/dL Leukocyte Esterase Rfl Trace H (Negative) JORI/UL Urine RBC 3-5 H (0-2) /hpf Urine WBC 0-5 (0-3) /hpf Ur Squamous Epith Cells None seen (Few) /hpf Urine Bacteria None seen /hpf Urine Casts 0-2 Urine Opiates Screen Negative (Negative) Urine Methadone Screen Negative (Negative) Ur Barbiturates Screen Negative (Negative) Ur Phencyclidine Scrn Negative (Negative) Ur Amphetamine Screen Negative (Negative) U Benzodiazepines Scrn Negative (Negative) Urine Cocaine Screen Negative (Negative) U Cannabinoids Screen Negative (Negative) Ethyl Alcohol < 10 (<10) mg/dL <Joel Flores III, DO - Last Filed: 08/14/24 21:49> Imaging Data Radiologist's impression: ITS Impressions Head CT 08/14/24 15:51 IMPRESSION: No acute intracranial process. <Aura Arroyo PA-C - Last Filed: 08/15/24 11:08> Discharge Plan Discharge Clinical Impression: Headache Qualifiers: Headache type: unspecified Headache chronicity pattern: acute headache I ntractability: not intractable Qualified Code(s): R51.9 - Headache, unspecified <SABRINA Hernandez Last Filed: 08/15/24 11:08> Patient Disposition: Home <SABRINA Hernandez Last Filed: 08/15/24 11:08> Condition: Improved <SABRINA Hernandez Last Filed: 08/15/24 11:08> Instructions: Antibiotic Form, Acute Headache (DC) <Aura Arroyo PA-C - Last Filed: 08/15/24 11:08> Patient Language: Turkish <Aura Arroyo PA-C - Last Filed: 08/15/24 11:08> Prescriptions: No Action No Home Medications <Aura Arroyo PA-C - Last Filed: 08/15/24 11:08> Follow-up/Referrals: PHYSICIAN,LOGGING RAFTER LABORER [Primary Care Provider] - <Aura Arroyo PA-C - Last Filed: 08/15/24 11:08>
[2024-08-14 16:27] LABS: Hematocrit 45.9 % (42.0-52.0); Hemoglobin 15.4 g/dL (14.0-18.0); Immature Granulocyte Percent A 0.2 % (0-0.5); Lymphocytes Absolute Auto 1.96 K/mm3 (0.9-3.2); Mean Corpuscular HGB Conc 33.6 g/dl (32-36); Mean Corpuscular Hemoglobin 30.6 pg (26-34); Mean Corpuscular Volume 91.3 fl (80-100); Nucleated Red Blood Cells Absolute Auto 0.000 K/mm3 (0.0-0.012); Nucleated Red Blood Cells Perc 0.0 % (0.0-0.2); Platelet Count Result 265 k/mm3 (150-375); Red Blood Count 5.03 M/mm3 (4.6-6.20); White Blood Count 5.4 K/mm3 (4.5-10.0)
[2024-08-14 16:34] LABS: Add Urine Microscopic? YES; Appearance Urine Clear (Clear); Glucose Urine UA Negative (Negative); Leukocyte Esterase Ur Trace LEU/UL (Negative); Nitrate Urine Negative (Negative); Non Pathogenic Casts 0-2; Specific Grav Ur 1.011 (1.001-1.035)
[2024-08-14 16:48] LABS: Cannabinoid Screen Urine Negative (Negative)
[2024-08-14 17:06] LABS: Alanine Aminotransferase 27 U/L (6-50); Albumin Level 5.0 g/dL (3.5-5.1); Alkaline Phosphatase 74 U/L (38-126); Anion Gap 10 mmol/L (4-12); Aspartate Amino Transferase 33 U/L (17-59); Bilirubin,Total 0.8 mg/dL (0.2-1.3); Blood Urea Nitrogen 11 mg/dL (9-20); Calcium 9.8 mg/dL (8.4-10.2); Carbon Dioxide 30 mmol/L (22-30); Chloride 101 mmol/L (98-107); Estimated CRCL calculation 83 ml/min; Estimated Glomerular Filt Rate > 60; Glucose 106 mg/dL (65-110); Potassium 4.7 mmol/L (3.4-5.0); Sodium 141 mmol/L (137-145); Total Protein 8.5 g/dL (6.3-8.2)
[2024-08-14 18:15] VITALS: BP 114/86; PULSE 52; RESP 18; TEMP 36.9; O2SAT 100
[2024-08-14 18:22] VITALS: BP 177/81; PULSE 53; RESP 17; TEMP 36.9; O2SAT 100
[2024-08-14] MEDS: KETOROLAC (*BKC) 60 MG/2 ML VIAL IM (19:07)
--- NOTE | 2024-08-14 19:12 | PC.NURSE ---
Assumed care of pt from MARYSOL Schaefer at this time. Pt medicated during BSSR. Call light within reach.
[2024-08-14 19:38] VITALS: BP 106/81; PULSE 61; RESP 16; O2SAT 98
[2024-08-14 19:40] VITALS: O2SAT 100
== END 2024-08-14 19:44 | disposition home or self-care (01) ==
PROVIDERS: Physician Assistant; Emergency Provider Emergency Medicine
DX: R51.9 Headache, unspecified (principal); F17.220 Nicotine dependence, chewing tobacco, uncomplicated
CPT/HCPCS: 36415; 70450; 80053; 80307; 81001; 82077; 85025; 96372; 99284; J1885

== ENCOUNTER 2024-08-25 16:45 | Outpatient (CLI) | payer OTHER, BC, SELFPAY ==
--- NOTE | ~2024-08-25 | XR_ITS ---
EXAM: XR knee RT 3V DATE: 08/25/2024 17:07 HISTORY: Chronic Rt. knee pain x15 yrs, NKI . COMPARISON: None available. FINDINGS: Normal mineralization. No fracture or dislocation. No lytic or blastic lesion. Joint space s are maintained. No erosion or periosteal change. No large joint effusion. Thickening of the distal quadriceps tendon. IMPRESSION: No acute osseous finding in the right knee. Quadriceps tendon thickening, may reflect a c omponent of tendinopathy. Consider MRI of the knee for further evaluation. Reviewed, dictated and finalized at location K. IMPRESSION: No acute osseous finding in the right knee. Quadriceps tendon thick ening, may reflect a component of tendinopathy. Consider MRI of the knee for fu rther evaluation.
--- NOTE | ~2024-08-25 | XR_ITS ---
EXAM: XR lumbar spine 2-3V DATE: 08/25/2024 17:07 HISTORY: Chronic low back pain x15 yrs, NKI . COMPARISON: None available. FINDINGS: 5 nonrib-bearing lumbar-type vertebral bodies. Rudimentary disc at S1-S2. Pedicles intact. Normal vertebral body alignment. Mild anterior wedge deformity at L1 and L2. Mild disc space narrowi ng at L1-2 and L3-4. Small left-sided lateral marginal osteophyte at L2-3. Normal facets and posterio r elements. No fracture or dislocation. IMPRESSION: Very mild anterior wedge deformity at L1 and L2, may be physiologic or related to old tra fidencio. Mild degenerative disc disease at L2-3 and L3-4. If pain persists, consider MRI of the lumbar sp ine further evaluation. Reviewed, dictated and finalized at location K. IMPRESSION: Very mild anterior wedge deformity at L1 and L2, may be physiologic or related to old trauma. Mild degenerative disc disease at L2-3 and L3-4. If pain persists, consider MRI of the lumbar spine further evaluation.
== END 2024-08-25 16:46 | disposition home or self-care (01) ==
LOC: CHSIMG 16:47
PROVIDERS: PCP Family Medicine; Visit Provider Family Medicine
DX: M25.561 Pain in right knee (principal); M54.50 Low back pain, unspecified; M48.56XA Collapsed vertebra, not elsewhere classified, lumbar region, initial encounter for fracture; M51.369 Other intervertebral disc degeneration, lumbar region without mention of lumbar back pain or lower extremity pain
CPT/HCPCS: 72100; 73562

== ENCOUNTER 2024-09-02 07:06 | Outpatient (CLI) | payer OTHER, SELFPAY ==
--- NOTE | ~2024-09-02 | MR_ITS ---
MRI of the lumbar spine Clinical History: Back pain Technique: Axial T2-weighted images, and sagittal T1-weighted, T2-weighted, and T2 fat-sat images wer e acquired. Findings: There is no fracture or subluxation of the lumbar spine. Vertebral bodies maintain normal h eight and alignment. No bone marrow signal reality seen. No significant disc bulge or herniation seen at any lumbar level. There are mild facet joint degenera tive changes. No spinal canal stenosis seen in the lumbar spine. There is probable mild neural forami nal narrowing throughout the lumbar spine. Paravertebral soft tissues are unremarkable. Impression: Probable multilevel mild neural foraminal narrowing throughout the lumbar spine with mild facet arthr opathy. Reviewed, dictated and finalized at location . Impression: Probable multilevel mild neural foraminal narrowing throughout the lumbar spine with mild facet arthropathy.
== END 2024-09-02 07:07 | disposition home or self-care (01) ==
LOC: CHSIMG 07:09
PROVIDERS: PCP Family Medicine; Visit Provider Family Medicine
DX: M54.50 Low back pain, unspecified (principal); M47.816 Spondylosis without myelopathy or radiculopathy, lumbar region
CPT/HCPCS: 72148

== ENCOUNTER 2024-09-18 16:11 | Outpatient (RCR) | payer OTHER, MEDICAID, SELFPAY ==
--- NOTE | 2024-10-16 16:47 | OPREHPOC ---
Outpatient Therapy Plan of Care This is a Multidisciplinary Plan of Care that may contain components documented by all disciplines (PT, OT, and ST.) PT Problem 1 PT Problem #1 Knowledge Deficit PT Goal 1 Goal / Goal Update independent and compliant with HEP Target Visit 6 PT Problem 2 PT Problem #2 Pain PT Goal 1 Goal / Goal Update decrease pain at worst to 1/10 or less in the lower back Target Visit 12 PT Problem 3 PT Problem #3 Impaired Range of Motion PT Goal 1 Goal / Goal Update 100% lumbar active rom without pain Target Visit 12 PT Problem 4 PT Problem #4 Impaired Strength PT Goal 1 Goal / Goal Update 4+/5 or better bilateral hip strength overall 4/5 or better core strength Target Visit 12 PT Problem 5 PT Problem #5 Impaired Functional Mobility PT Goal 1 Goal / Goal Update oswestry to display 10% or less functional deficits patient to perform safe squat and lift of 50lbs without pain patient to carry 50lbs for 400ft or more without pain Target Visit 12
--- NOTE | 2024-10-16 16:47 | PTOPEVAL1 ---
Assessment and note entered by JT File, PT Evaluation Information Assessment Status Evaluation ICD-10 Condition Codes (PT) Pain in low back M54.50 Onset 09/13/24 Subjective Information patient reports he has pain in the lower back every day. he reports the pain neve goes away. he reports he had an xray and an MRI of the lower back and reports he was told it is compressed. 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 he reports nothing changes his pain, but some days are worse than others. Assessment PT Clinical Summary mr. lubin is a 34 yo man who presents to skilled PT services for evaluation and treatment of lower back pain. he reports pain all the time in the lower back, and reports he had an MRI that shows lumbar disc compression. he display limited lumbar rom, weak hips, and deficits in functional movement/activity performance. continued skilled PT is indicated to achieve his objective/ functional deficits and progress towards a return to his prior level functional activity performance /quality of life. Plan of Care Interventions Electrical Stimulation,Gait Training,Hot Pack/Cold Pack,Manual Therapy,Mechanical Traction,Neuro Re- education,Patient/Caregiver Education,Therapeutic Activities,Therapeutic Exercise PT Services Indicated Yes Treatment Frequency and 3x weekly for 12 visits Duration These treatments will address the objective and functional deficits as defined above. The patient will be advanced safely and appropriately in order for the patient to progress towards his/her prior level of function. Additional exercises will be introduced and as well as a comprehensive home exercise program upon discharge, if needed, ?to ensure carryover of functional gains achieved in the clinic. This treatment plan has been reviewed and agreement upon by the patient.
--- NOTE | 2024-10-16 17:44 | OPREHPOC ---
Outpatient Therapy Plan of Care This is a Multidisciplinary Plan of Care that may contain components documented by all disciplines (PT, OT, and ST.) PT Problem 1 PT Problem #1 Knowledge Deficit PT Goal 1 Goal / Goal Update independent and compliant with HEP Target Visit 6 Progress Met PT Problem 2 PT Problem #2 Pain PT Goal 1 Goal / Goal Update decrease pain at worst to 1/10 or less in the lower back Target Visit 12 Progress Not Met PT Problem 3 PT Problem #3 Impaired Range of Motion PT Goal 1 Goal / Goal Update 100% lumbar active rom without pain Target Visit 12 Progress Partially Met PT Problem 4 PT Problem #4 Impaired Strength PT Goal 1 Goal / Goal Update 4+/5 or better bilateral hip strength overall. met 4/5 or better core strength Target Visit 12 Progress Partially Met PT Problem 5 PT Problem #5 Impaired Functional Mobility PT Goal 1 Goal / Goal Update oswestry to display 10% or less functional deficits patient to perform safe squat and lift of 50lbs without pain patient to carry 50lbs for 400ft or more without pain Target Visit 12 Progress Not Met
--- NOTE | 2024-10-16 17:45 | PTOPPROGNS ---
Assessment and note entered by JT File, PT Evaluation Information Assessment Status Progress ICD-10 Condition Codes (PT) Pain in low back M54.50 Onset 09/13/24 Subjective Information patient reports he continues to have pain all the time in the lower back. he reports he will feel a little better after therapy, but wake up the next day with pain again in the lower back. he reports nothing makes it worse, it is just sore and painful all the time. Assessment PT Clinical Summary mr. lubin presents to skilled PT services for his 10th skilled PT visit. despite reporting no subjective changes, patient displays slightly better score on the oswestry, and improved hip strength bilat. continued therapy will focus on improving his lumbar rom, core strength, and functional lifting performance to achieve goals and reduce pain. Plan of Care Interventions Electrical Stimulation,Gait Training,Hot Pack/Cold Pack,Manual Therapy,Mechanical Traction,Neuro Re- education,Patient/Caregiver Education,Therapeutic Activities,Therapeutic Exercise PT Services Indicated Yes Treatment Frequency and continue per initial POC Duration These treatments will address the objective and functional deficits as defined above. The patient will be advanced safely and appropriately in order for the patient to progress towards his/her prior level of function. Additional exercises will be introduced and as well as a comprehensive home exercise program upon discharge, if needed, ?to ensure carryover of functional gains achieved in the clinic. This treatment plan has been reviewed and agreement upon by the patient.
--- NOTE | 2024-10-25 17:47 | PTOPDC ---
Assessment and note entered by Yolanda Paulson, PT Evaluation Information Assessment Status Discharge ICD-10 Condition Codes (PT) Pain in low back M54.50 Onset 09/13/24 Subjective Information presents for his 12th skilled PT visit today addressing chronic low back pain. He reports feeling like his pain is unchanged since starting therapy. He states that there are some days when he leaves therapy feeling fine and his back doesn' t hurt, but that the pain always comes back eventually. He recent changed jobs to one that requires less lifting and physical labor and he's hoping it helps to ease his back pain a little. He feels like his strength has improved a little bit since starting but overall feels like PT hasn't helped his back very much. He has recently been experiencing his R knee giving out and has a new PT order for this, so he would like to stop therapy for his back so he can begin to focus on getting his knee to feel better. Reported Pain Level Pain Score 3: Self Report Assessment PT Clinical Summary Mr. Dunn has attended 12 skilled PT visits addressing chronic low back pain. Despite consistent attendance to therapy visits and adherence to home exercise program, his pain is relatively unchanged and he demonstrates minimal improvement toward therapeutic goals. He does demonstrate improved core and hip mm strength but still experiences pain with active lumbar movements and functional activities such as lifting. Since starting PT his R knee has started to give out on him, and he has a new PT order for his knee and would like to focus on the knee at this time, therefore he will be discharging from skilled PT for the lower back this date. Plan of Care PT Services Indicated No
== END 2024-10-25 20:00 | disposition home or self-care (01) ==
LOC: CHSPT 16:11
PROVIDERS: PCP Family Medicine; Visit Provider Family Medicine
DX: M54.50 Low back pain, unspecified (principal)
CPT/HCPCS: 97014; 97110; 97112; 97140; 97150; 97161; G0283

== ENCOUNTER 2024-11-01 16:28 | Outpatient (RCR) | payer BC, OTHER, MEDICAID, SELFPAY ==
--- NOTE | 2024-11-01 17:25 | OPREHPOC ---
Outpatient Therapy Plan of Care This is a Multidisciplinary Plan of Care that may contain components documented by all disciplines (PT, OT, and ST.) PT Problem 1 PT Problem #1 Knowledge Deficit PT Goal 1 Goal / Goal Update independent and compliant with HEP Target Visit 6 PT Problem 2 PT Problem #2 Impaired Strength PT Goal 1 Goal / Goal Update 5/5 bilateral hip strength 5/5 bilateral knee flex Target Visit 12 PT Problem 3 PT Problem #3 Impaired Functional Mobility PT Goal 1 Goal / Goal Update LEFS to display 50% or less functional deficits patient to report no instability incidents of the R knee in the past 2 weeks or longer Target Visit 12
--- NOTE | 2024-11-01 17:25 | PTOPEVAL1 ---
Assessment and note entered by JT File, PT Evaluation Information Assessment Status Evaluation ICD-10 Condition Codes (PT) Pain in right knee M25.561 Onset 10/11/24 Subjective Information patient reports he has been having issues with the R knee for about 2-3 years. he reports the knee was not too bad initially when, but it has steadily gotten worse. he reports he does not get a lot of pain, but the knee will give out on him. he reports he has never injured the R knee. he reports he did have and xray and mri of the R knee last month. he was told there was nothing significantly wrong with the knee. Reported Pain Level Pain Score 0: Self Report Assessment PT Clinical Summary mr. lubin presents to skilled PT for evaluation of chronic R knee instability. he has had MRI evaluation of the R knee with results that are inconclusive for a reason of his level of instability. he also displays adequate strength and rom of the R knee upon examination today. he is negative for all special testing of the R knee today. at this time, we are unable to assess a direct root cause of his symptoms, but he would likely benefit from continued skilled PT to work on proprioception/stability of the R knee with walking and activities. Plan of Care Interventions Gait Training,Manual Therapy,Neuro Re-education, Patient/Caregiver Education,Therapeutic Activities ,Therapeutic Exercise PT Services Indicated Yes Treatment Frequency and 3x weekly for 12 visits Duration These treatments will address the objective and functional deficits as defined above. The patient will be advanced safely and appropriately in order for the patient to progress towards his/her prior level of function. Additional exercises will be introduced and as well as a comprehensive home exercise program upon discharge, if needed, ?to ensure carryover of functional gains achieved in the clinic. This treatment plan has been reviewed and agreement upon by the patient.
--- NOTE | 2024-11-08 08:24 | PCPTNOTE ---
Cancelled session due to insurance issues.
== END 2025-01-30 23:59 | disposition home or self-care (01) ==
LOC: CHSPT 16:28
PROVIDERS: Visit Provider Orthopaedic Surgery
DX: M25.561 Pain in right knee (principal); M23.51 Chronic instability of knee, right knee
CPT/HCPCS: 97110; 97112; 97161

== ENCOUNTER 2024-11-07 11:06 | Outpatient (CLI) | payer OTHER, MEDICAID, SELFPAY ==
--- NOTE | ~2024-11-07 | XR_ITS ---
EXAMINATION: XR knee LT 3V, 11/07/2024 11:30 CDT HISTORY: L KNEE PAIN COMPARISON: No comparisons available. Findings: No acute fracture or malalignment. No significant degenerative changes. Soft tissues unremarkable. Impression: No acute fracture or malalignment. Reviewed, dictated and finalized at location P. Impression: No acute fracture or malalignment.
--- NOTE | ~2024-11-07 | XR_ITS ---
EXAMINATION: XR tibia fibula RT 2V, 11/07/2024 11:30 CDT HISTORY: PAIN IN UNSPEIFIED LOWER LEG COMPARISON: No comparisons available. Findings: There is a remote corticated fracture of the dorsal aspect of the talus, no acute fracture No significant degenerative changes. Soft tissues unremarkable. Impression: No acute fracture or malalignment. Reviewed, dictated and finalized at location P. Impression: No acute fracture or malalignment.
--- NOTE | ~2024-11-07 | XR_ITS ---
EXAMINATION: XR elbow RT min 3V, 11/07/2024 11:30 CDT HISTORY: R ELBOW PAIN COMPARISON: No comparisons available. Findings: No acute fracture or malalignment. No significant degenerative changes. Soft tissues unremarkable. Impression: No acute fracture or malalignment. Reviewed, dictated and finalized at location P. Impression: No acute fracture or malalignment.
--- NOTE | ~2024-11-07 | XR_ITS ---
EXAMINATION: XR knee RT 3V, 11/07/2024 11:30 CDT HISTORY: PAIN IN UNSPEIFIED LOWER LEG COMPARISON: No comparisons available. Findings: No acute fracture or malalignment. No significant degenerative changes. Soft tissues unremarkable. Impression: No acute fracture or malalignment. Reviewed, dictated and finalized at location P. Impression: No acute fracture or malalignment.
--- OUTSIDE RECORDS SUMMARY | 2024-11-07 11:42 | XMS_ITS | Patient Health Record ---
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 Name Role Phone Jone Mendoza MD Primary Care Provider Lacy Good Unavailable [phone] Allergies No Known Allergies Results Component Value Reference Range Notes UDT Reviewed date:10/17/2024 10:10:44 AM Interpretation: Performing Lab: Notes/Report: THC n 0 - 50 ng/ml Cocaine n 0 - 300 ng/ml Amphetamine n 0 - 1000 ng/ml Buprenorphine (BUP) n 0 - 10 ng/ml Secobarbital (Bar) n 0 - 300 ng/ml Oxazepam (BZO) n 0 - 300 ng/ml 8-eegilgfamj-5,0-ppdfgxru-8,3-diphenylpyrrolidine (ANN P) n 0 - 300 ng/ml Methamphetamine (MET) n 0 - 1000 ng/ml Methylenedioxymethamphetamine (MDMA) n 0 - 500 ng/ml Morphine (MOP 300/[id number]) n 0 - 300 ng/ml Methadone (MTD) n 0 - 300 ng/ml Phencyclidine (PCP) n 0 - 25 ng/ml Nortriptyline (TCA) n 0 - 1000 ng/ml Oxycodone n 0 - 300 ng/ml Reason For Referral No Information Medications Medication SIG (Take, Route, Frequency, Duration) Notes Start Date End Date Status ARIPiprazole 5 MG Tablet 1 tablet Orally Once a day; Duration: 30 days 10/16/2024 Active Varenicline Tartrate 1 MG Tablet 1 tablet after eating Orally Twice a day Active Social History Tobacco Use: Social History Observation Description Date Details (start date - stop date) Unknown Sex Assigned At : Social History Observation Description Sex Assigned At Male Social History Miscellaneous: Social Info Question Answer Notes Safety issues: Are there any firearms in the house? Ye s Social History Social Info Question Answer Notes Household: Marital Status: Number of Adults in household: 3 Number of Children in Household: 2 Level of Education: Finished High School Drug/Alcohol: Social Info Question Answer Notes Drugs Have you used drugs other than those for medical reasons in the past 12 months? No AUDIT-C (Standard) Points 2 Interpretation Positive Did you have a drink contain ing alcohol in the past year? Yes How often did you have six or more drinks on one occasion in the past year? Less than monthly (1 point) How many drinks did you have on a typical day when you were drinking in the past year? 1 or 2 drinks (0 point) How often did you have a drink containing alcohol in the past year? 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 Problems Problem Type SNOMED Code ICD Code Onset Dates Problem Status W/U Status Risk Notes Problem Intermittent explosive disorder (18384338) Intermittent explosive disorder (F63.81) Active confirmed Vital Signs Heart Rate 76 /min 10/16/2024 Height-cm 175.26 cm 10/16/2024 Blood pressure diastolic 77 mm Hg 10/16/2024 Weight-kg 70.76 kg 10/16/2024 Height 69 in 10/16/2024 Blood pressure systolic 115 mm Hg 10/16/2024 Weight 156 lbs 10/16/2024 BMI 23.03 kg/m2 10/16/2024 Encounters Encounter Location Date Provider Diagnosis [facility] [employer] [facility] [address] [place] [address] 10/16/2024 Lacy Cornelio Intermittent explosi ve disorder F63.81 Assessments Encounter Date Diagnosis (ICD Code) Assessment Notes Treatment Notes Treatment Clinical Notes Section Notes 10/16/2024 Intermittent explosive disorder (ICD-10 - F63.81) Second generation antipsychotics (SGAs) have metabolic syndrome issues with weight gain, increase in prolactin, increased waist circumference, increased lipids, and increased glucose. Thus routine monitoring of weight, metabolic labs, etc. is indicated. A general rank ordering of antipsychotics that have the greatest to the least risk of metabolic effects is olanzapine, quetiapine, risperidone, ziprasidone, and aripiprazole. However, weight gain can occur with all of these drugs and considerable variability exists among patients receiving the same drug regarding the risk of metabolic effects. Anti-psychotic agents not only increase the risk of metabolic disorder, they also increase the risk of CVA, akathisia, and movement disorders including EPS or tardive dyskinesia (more common with first generation antipsychotics) and more. 10/16/2024 Other Start abilify 5mg daily for mood stabilization, anger/irritabilit y Patient educated on all medications including potential benefits, side effects, risks. Educated on proper dosing schedule and importance of compliance. Declined counseling at this time. -Assessment and treatment plan reviewed with patient. -Compliance with treatment plan importance discussed. -Discussed the risks/benefits of this medication -Discussed medication side effects. -Contact office if symptoms worsen. -Discussed that it can take up to 6-8 weeks to see full therapeutic effects of psychotropic medications. -Crisis prevention hotline [phone]. Plan Of Treatment Next Appt Details Provider Name:Lacy Andre correa, 11/20/2024 08:15:00 AM, [address], [place], [address], Insurance Providers Payer Name Payer Address Payer Phone Subscriber Number Group Number Insured Name Patient Relationship to Insured Coverage Start Date Coverage End Date [facility] [address] [address] [place] [address] [id number] Jason Dunn Self - patient is the insured Medical (General) History Medical History History ICD Code abdominal aortic aneurysm: No atrial fibrillation: No chronic fatigue syndrome: No essential tremor: No hyperlipidemia: No hypertension: No Parkinson's disease: No restless leg syndrome: Yes stroke: No subdural hematoma: No type 1 diabetes mellitus: No type 2 diabetes mellitus: No vitamin B12 deficiency: No vitamin D deficiency: No
--- OUTSIDE RECORDS SUMMARY | 2024-11-07 11:42 | XMS_ITS | Clinical Summary ---
Author Organization [facility] Address [address] [place] [address] Care Team Providers Care Pharmacovigilance Specialist Name Role Phone Jone Mendoza MD Primary Care Provide r Encounters Date Type Department Care Team Description 10/06/2024 3:22 PM CDT - 10/06/2024 11:59 PM CDT Hospital Encounter [facility] [address] [place] [phone] Chronic instability of knee, right knee Discharge Disposition: Discharge to home or self care from Last 3 Months Social History Tobacco Use Types Packs/Day Years Used Date Smoking Tobacco: Never Assessed Sex and Gender Information Value Date Recorded Sex Assigned at Not on file Legal Sex Male 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 Gender Identity Not on file Sexual Orientation Not on file Last Filed Vital Signs Vital Sign [place] Time Taken Comments Blood Pressure 139/85 04/25/2016 11:51 PM CDT Pulse 80 04/25/2016 11:51 PM CDT Temperature 36.7 C (98.1 F) 04/25/2016 11:51 PM CDT Respiratory Rate - - Oxygen Saturation 98% 04/25/2016 11:51 PM CDT Inhaled Oxygen Concentration - - Weight 68 kg (150 lb) 04/25/2016 11:51 PM CDT Height 177.8 cm (5' 10) 04/25/2016 11:51 PM CDT Body Mass Index 21.52 04/25/2016 11:51 PM CDT Plan of Treatment Health Maintenance Due Date Last Done Comments Depression Screening 1989 Hepatitis C Screening 1989 Varicella Vaccines (1 of 2 - 13+ 2-dose series) 2002 Hepatitis B Screening 2007 Regular Well Visit/Exam 18-64 2007 HPV Vaccines (1 - 3-dose SCD M series) 02/06/2016 Influenza Vaccine (#1) 2024 DTaP/Tdap/Td Vaccine (2 - Tdap) 12/23/2024 5 Pneumococcal vaccine <65 Aged Out No longer eligible based on patient's age to complete this topic Procedures Procedure Name Priority Date/Time Associated Diagnosis Comments MRI KNEE RIGHT WO CONTRAST Schedule Routine, Read Routine (OP Routine) 10/06/2024 3:58 PM CDT Chronic instability of knee, right knee from Last 3 Months Results * MRI Knee Right WO Contrast (10/06/2024 3:58 PM CDT) Anatomical Region Laterality Modality Lower Extremities Right Magnetic Reson ance 10/06/2024 9:10 PM CDT Narrative 10/06/2024 10:04 PM CDT EXAM DESCRIPTION: MRI KNEE RIGHT WO CONTRAST REASON FOR STUDY: chronic instability of knee, right knee 2 year ago pt notes the start of his knee randomly giving out on him; unknown cause; pt states it's occurring more frequently; initial encounter TECHNIQUE: Multiplanar, multisequence MRI of the right knee was performed without contrast. COMPARISON: None available FINDINGS: In the medial compartment, the meniscus is intact. Partial-thickness cartilage loss with fissuring at the junction of the central and posterior weight-bearing femoral condyle. In the lateral compartment, the meniscus is intact. There is no focal chondrosis or subchondral edema. In the patellofemoral compartment, there is no focal chondrosis or subchondral edema. Trochlear dysplasia is present. The cruciate and lateral collateral ligaments are intact. Thickened proximal medial collateral ligament is present. Mild proximal patellar tendinosis. The popliteus tendon is intact. Small effusion is present. There are no loose bodies. IMPRESSION: 1. Intact right knee menisci, cruciate and lateral collateral ligaments. Thickened proximal medial collateral ligament is consistent with a prior sprain 2. Mild medial compartment right knee chondrosis. 3. Small right knee effusion. 4. Mild proximal right patellar tendinosis. 5. Trochlear dysplasia. THIS IS AN ELECTRONICALLY VERIFIED FINAL REPORT 10/06/2024 10:04 PM - Electronically signed by Antonio Gonzalez M.D. MF: [email or web address] Report ID: [id number] [place] Location: [id number] Procedure Note Antonio Gonzalez MD - 10/06/2024 EXAM DESCRIPTION: MRI KNEE RIGHT WO CONTRAST REASON FOR STUDY: chronic instability of knee, right knee 2 year ago pt notes the start of his knee randomly giving out on him;unknown cause; pt states it's occurring more frequently; initial encounter TECHNIQUE: Multiplanar, multisequence MRI of the right knee wasperformed without contrast. COMPARISON: None available FINDINGS: In the medial compartment, the meniscus is intact. Partial-thicknesscartilage loss with fissuring at the junction of the central and posterior weight-bearing femoral condyle. In the lateral compartment, the meniscus is intact. There is no focal chondrosis or subchondral edema. In the patellofemoral compartment, there is no focal chondrosis orsubchondral edema. Trochlear dysplasia is present. The cruciate and lateral collateral ligaments are intact. Thickenedproximal medial collateral ligament is present. Mild proximal patellar tendinosis. The popliteus tendon is intact. Small effusion is present. There are noloose bodies. IMPRESSION: 1. Intact right knee menisci, cruciate and lateral collateral ligaments. Thickened proximal medial collateral ligament is consistent with a prior sprain 2. Mild medial compartment right knee chondrosis. 3. Small right knee effusion. 4. Mild proximal right patellar tendinosis. 5. Trochlear dysplasia. THIS IS AN ELECTRONICALLY VERIFIED FINAL REPORT 10/06/2024 10:04 PM - Electronically signed by Antonio Gonzalez M.D. MF: [email or web address] Report ID: [id number] [place] Location: [id number] us Fidencio Randall MD IMG MRI PROCEDURES Final Res ult from Last 3 Months Insurance [facility] Care Teams Pharmacovigilance Specialist Relationship Specialty Start Date End Date Jone Mendoza MD [address] [place], [place] [id number] PCP - General Family Medicine 09/25/24
== END 2024-11-07 11:07 | disposition home or self-care (01) ==
PROVIDERS: PCP Family Medicine; Visit Provider Family Medicine
DX: M25.562 Pain in left knee (principal); M79.604 Pain in right leg; M25.561 Pain in right knee; M25.521 Pain in right elbow
CPT/HCPCS: 73080; 73562; 73590